=== PATIENT | male | born 1990 | race Two or more races ===

== ENCOUNTER 2019-04-07 14:58 | Emergency (ER) | payer MEDICAID ==
[~2019-04-07] VITALS: Ht 154.9 cm; Wt 61.2 kg
[2019-04-07 15:15] VITALS: BP 135/80
[2019-04-07] MEDS ORDERED: LIDOCAINE HCL/PF 1% 30 ML SDV ONE (15:45)
[2019-04-07] MEDS ORDERED: TDAP [DIPH/PERTUSSIS/TET] 0.5 ML VIAL IM ONE ×2 (16:00→16:19)
== END 2019-04-07 16:36 | disposition home or self-care (01) ==
LOC: ER 14:58
DX: S61.212A Laceration without foreign body of right middle finger without damage to nail, initial encounter (principal); I10 Essential (primary) hypertension; Z94.0 Kidney transplant status; W26.8XXA Contact with other sharp object(s), not elsewhere classified, initial encounter; Y93.89 Activity, other specified; Y92.89 Other specified places as the place of occurrence of the external cause; Y99.8 Other external cause status
CPT/HCPCS: 12001; 90471; 90715; 99283; J3490

== ENCOUNTER → 2023-10-12 | Emergency (ER) | payer MEDICAID, OTHER ==
[~2023-10-12] VITALS: Ht 154.9 cm; Wt 62.6 kg
[~2023-10-12] MED LIST: CYCL5TAB PO; CYCLOBENZAPRINE 10 MG TABLET ONE; KETOROLAC TROMETHAMINE 15 MG/ML VIAL ONE; LIDO30AD10 TP; NAPR-1164 PO
[2023-10-12 15:51] VITALS: BP 156/99; TEMP 98.4
[2023-10-12] MEDS: KETOROLAC TROMETHAMINE 15 MG/ML VIAL IM ONE (16:04)
[2023-10-12] MEDS: CYCLOBENZAPRINE 10 MG TABLET PO ONE (16:04)
[2023-10-12 16:12] VITALS: O2SAT 98
== END | disposition home or self-care (01) ==
LOC: ER 15:39
DX: S13.4XXA Sprain of ligaments of cervical spine, initial encounter (principal); Z94.0 Kidney transplant status; V43.52XA Car driver injured in collision with other type car in traffic accident, initial encounter; Y93.89 Activity, other specified; Y92.89 Other specified places as the place of occurrence of the external cause; Y99.8 Other external cause status
CPT/HCPCS: 99283; 96372; J1885

== ENCOUNTER 2024-02-15 09:47 | Emergency (ER) | payer OTHER ==
[~2024-02-15] VITALS: Ht 154.9 cm; Wt 61.2 kg
[~2024-02-15 09:47] MED LIST changes: -CYCLOBENZAPRINE 10 MG TABLET ONE; -KETOROLAC TROMETHAMINE 15 MG/ML VIAL ONE
[2024-02-15 10:17] VITALS: TEMP 98.3
[2024-02-15] MEDS ORDERED: CEPH-570 PO (10:44)
[2024-02-15] MEDS ORDERED: MUPI15CR TP (10:44)
[2024-02-15] MEDS ORDERED: SULF1TAB48 PO (10:44)
[2024-02-15 11:00] VITALS: BP 122/70; O2SAT 100
== END 2024-02-15 11:00 | disposition home or self-care (01) ==
LOC: ER 09:54
DX: A46 Erysipelas (principal); I10 Essential (primary) hypertension; Z94.0 Kidney transplant status